=== PATIENT | male | born 1970 | race Caucasian/White ===

== ENCOUNTER 2019-06-01 15:38 | Emergency (ER) | payer SELFPAY ==
[2019-06-01] MEDS ORDERED: Lidocaine 5% 700 MG Patch TOP ONE (16:08)
[2019-06-01] MEDS ORDERED: Ibuprofen 600 MG Tab PO ONE (16:08)
--- NOTE | 2019-06-01 17:14 | EDM.PDOC ---
ED HPI GENERAL MEDICAL PROBLEM - General Chief Complaint: Chest Pain Stated Complaint: SHARP PAIN IN CHEST Time Seen by Provider: 06/01/19 17:05 Source of Information: Reports: Patient History Limitations: Reports: No Limitations - History of Present Illness Duration: Day(s): (4) Location: Reports: Chest, Back Quality: Reports: Sharp, Stabbing Severity: Severe Improves with: Reports: None Worsens with: Reports: Movement Context: Reports: Lifting Associated Symptoms: Reports: No Other Symptoms, Chest Pain. Denies: Cough, Fever/Chills, Nausea/Vomiting, Shortness of Breath left ribs Pain Score (Numeric/FACES): 10 - Related Data Allergies Allergy/AdvReac Type Severity Reaction Status Date / Time No Known Allergies Allergy Verified 06/01/19 15:44 Home Meds: Home Meds Cyclobenzaprine [Flexeril] 5 mg PO TID PRN #14 tab 06/01/19 [Rx] Lidocaine 5% [Lidoderm 5%] 1 patch TOP DAILY PRN #14 patch 06/01/19 [Rx] Past Medical History - Past Health History Medical/Surgical History: Denies Medical/Surgical History Musculoskeletal History: Reports: Back Pain, Chronic - Past Surgical History GI Surgical History: Reports: Hernia Repair/Other Musculoskeletal Surgical History: Reports: Other (See Below) Other Musculoskeletal Surgeries/Procedures:: back sx Social & Family History - Family History Family Medical History: Noncontributory - Tobacco Use Smoking Status *Q: Current Every Day Smoker Years of Tobacco use: 30 Packs/Tins Daily: 0.5 - Recreational Drug Use Recreational Drug Use: Yes Recreational Drug Type: Reports: Methamphetamine Recreational Drug Use Frequency: Socially ED ROS GENERAL - Review of Systems Review Of Systems: Comprehensive ROS is negative, except as noted in HPI. ED EXAM,LOWER BACK PAIN/INJURY - Physical Exam Exam: See Below Exam Limited By: No Limitations General Appearance: Alert, Mild Distress Head: Atraumatic, Normocephalic Neck: Normal Inspection, Supple, Non-Tender Respiratory/Chest: No Respiratory Distress, Lungs Clear, Normal Breath Sounds. No: Chest Non-Tender, Respiratory Distress Cardiovascular: Regular Rate, Rhythm, No JVD, No Murmur GI/Abdominal: Normal Bowel Sounds, Soft, Non-Tender, No Organomegaly Back Exam: Muscle Spasm. No: CVA Tenderness (L), CVA Tenderness (R), Vertebral Tenderness Extremities: Normal Inspection, Non-Tender Neurological: Alert, Normal Mood/Affect Course - Vital Signs Last Recorded V/S: Last Vital Signs Temp 37.1 C 06/01/19 15:42 Pulse 103 H 06/01/19 16:32 Resp 16 06/01/19 16:32 BP 122/87 06/01/19 16:32 Pulse Ox 100 06/01/19 16:32 - Orders/Labs/Meds Orders: Active Orders 24 hr Category Date Time Status EKG 12 Lead [EKG Documentation Completion] [RC] STAT Care 06/01/19 15:54 Active Chest 2V [CR] Stat Exams 06/01/19 16:07 Taken Meds: Medications Discontinued Medications Generic Name Dose Route Start Last Admin Trade Name Michael PRN Reason Stop Dose Admin Ibuprofen 600 mg 06/01/19 16:08 06/01/19 16:31 Motrin PO 06/01/19 16:09 600 mg ONETIME ONE Administration Lidocaine 700 mg 06/01/19 16:08 06/01/19 16:31 Lidoderm 5% TOP 06/01/19 16:09 700 mg ONETIME ONE Administration - Re-Assessments/Exams Free Text/Narrative Re-Assessment/Exam: 06/01/19 17:15 Majority of patient's pain was on his left back not CVA in area. Pain does radiate to the front. He has no abdominal complaint. He has no rash or ecchymosis erythema in the area. With further questioning patient acknowledges he was lifting some concrete steps 4 days ago at onset of his symptoms and was tossing these because he was angry. He says the pain is been there nonstop since. He denies any direct trauma around or since onset of pain. Extremity shows no pneumothorax or pneumonia. Departure - Departure Time of Disposition: 17:16 Disposition: Home, Self-Care 01 Condition: Good Clinical Impression: Pain in lower back - Discharge Information Referrals: PCP,None [Primary Care Provider] - Additional Instructions: Ice and/or heat. Lidoderm and Flexeril as needed. Follow-up with PCP if symptoms continue. Return to ER if worse. The following information is given to patients seen in the emergency department who are being discharged to home. This information is to outline your options for follow-up care. We provide all patients seen in our emergency department with a follow-up referral. The need for follow-up, as well as the timing and circumstances, are variable depending upon the specifics of your emergency department visit. If you don't have a primary care physician on staff, we will provide you with a referral. We always advise you to contact your personal physician following an emergency department visit to inform them of the circumstance of the visit and for follow-up with them and/or the need for any referrals to a consulting specialist. The emergency department will also refer you to a specialist when appropriate. This referral assures that you have the opportunity for follow-up care with a specialist. All of these measure are taken in an effort to provide you with optimal care, which includes your follow-up. Under all circumstances we always encourage you to contact your private physician who remains a resource for coordinating your care. When calling for follow-up care, please make the office aware that this follow-up is from your recent emergency room visit. If for any reason you are refused follow-up, please contact the [facility] Emergency Department at and asked to speak to the emergency department charge nurse. Sepsis Event Note - Evaluation Sepsis Screening Result: No Definite Risk - Focused Exam Vital Signs: Vital Signs Temp Pulse Resp BP Pulse Ox 06/01/19 16:32 103 H 16 122/87 100 06/01/19 15:42 37.1 C 106 H 20 122/87 100 Date Exam was Performed: 06/01/19 Time Exam was Performed: 17:08 - My Orders Last 24 Hours: My Active Orders 06/01/19 15:54 EKG 12 Lead [EKG Documentation Completion] [RC] STAT 06/01/19 16:07 Chest 2V [CR] Stat - Assessment/Plan Last 24 Hours: My Active Orders 06/01/19 15:54 EKG 12 Lead [EKG Documentation Completion] [RC] STAT 06/01/19 16:07 Chest 2V [CR] Stat
--- NOTE | 2019-06-01 17:29 | CR ---
INDICATION: Left-sided chest pain. Rule out pneumothorax. COMPARISON: None available. FINDINGS: PA and lateral views of the chest were obtained. There is no sign of pneumothorax on either side. The lungs are clear. No focal or diffuse infiltrates are present. The heart is normal in size. The mediastinum is normal in appearance. The osseous structures are normal in appearance for the patient`s age. IMPRESSION: Normal chest 2 views. No sign of pneumothorax on either side. Nothing seen that would explain the patient`s left chest pain. Dictated by Elijah Paulson MD @ Jun 01 2019 5:25PM Signed by Dr. Elijah Paulson @ Jun 01 2019 5:28PM
== END 2019-06-01 17:30 | disposition home or self-care (01) ==
LOC: MW.ED 15:38
DX: M54.5 Low back pain (principal); R07.9 Chest pain, unspecified; F17.210 Nicotine dependence, cigarettes, uncomplicated
CPT/HCPCS: 71046; 93005; 99285; A9270; 99283